=== PATIENT | male | born 1940 | race Caucasian/White ===

== ENCOUNTER 2018-03-06 22:14 | Outpatient (CLI) | payer MEDICARE | END 2018-03-06 22:15 | disposition home or self-care (01) | LOC: DI 22:14 | PROVIDERS: ATTEND Nurse Practitioner Family | DX: Z53.9 Procedure and treatment not carried out, unspecified reason (principal) ==

== ENCOUNTER 2018-04-07 15:07 | Outpatient (CLI) | payer MEDICARE ==
--- NOTE | 2018-04-08 10:35 | XRAY Report ---
Reason: SHOULDER PAIN,LEFT Procedure Date: 04/07/2018 Accession Number: [id number] / [id number] Procedure: XR - Shoulder 2 View LT CPT Code: FULL RESULT: EXAM: LEFT SHOULDER RADIOGRAPHY EXAM DATE: 04/07/2018 03:32 PM. CLINICAL HISTORY: Left shoulder pain. COMPARISON: None. TECHNIQUE: 2 views. FINDINGS: Bones: Normal. No fracture or bone lesion. Joints: Mild degenerative changes of the AC joint. The glenohumeral joint and AC joint are normally located. Soft tissues: The visualized hemithorax is unremarkable. No soft tissue swelling. IMPRESSION: AC joint degenerative changes. [facility]
== END 2018-04-07 15:08 | disposition home or self-care (01) ==
LOC: DI 15:07
PROVIDERS: ATTEND Nurse Practitioner
DX: M19.012 Primary osteoarthritis, left shoulder (principal)